=== PATIENT | male | born 1955 | race African-American/Black ===

== ENCOUNTER 2016-09-19 11:29 | Outpatient (CLI) | payer MEDICARE, MEDICAID ==
[2016-09-19 12:22] LABS: #Basophils 0.1 thou/uL (0.0-0.2); #Eosinphils 0.1 thou/uL (0.0-0.7); #Lymphocytes 1.6 thou/uL (1.20-3.40); #Monocytes 0.3 thou/uL (0.11-0.59); #Neutrophils 1.5 thou/uL (1.40-6.50); %Basophils 1.7 % (0.0-1.0); %Eosinophils 3.8 % (0.0-10.0); %Lymphocytes 43.9 % (21.0-51.0); %Monocytes 9.2 % (0.0-10.0); Hematocrit 43.7 % (42.0-52.0); Mean Platelet Volume 5.8 fL (7.4-10.4); Red Blood Cell (RBC) Count 4.59 mill/uL (4.70-6.10); White Blood Cell (WBC) Count 3.6 thou/uL (4.8-10.8)
[2016-09-19 12:30] LABS: ALT (SGPT) 22 U/L (0-55); AST (SGOT) 16 U/L (5-34); Alkaline Phosphatase 80 U/L (40-150); Bilirubin, Direct 0.2 mg/dL (0.1-0.3); Bilirubin, Total 0.4 mg/dL (0.2-1.2); Protein, Total 7.3 g/dL (6.0-8.3)
[2016-09-21 12:15] LABS: %CD4 (Helper/Inducer) 13.4 % (30.8-58.5); Absolute CD4 188 /uL (359-1519); Lymphocytes/Gated Cell Count 1.4 x10E3/uL (0.7-3.1)
== END 2016-09-19 11:30 | disposition home or self-care (01) ==
LOC: NAVSJIPCSP 11:29
PROVIDERS: ATTEND Internal Medicine Infectious Disease
DX: B20 Human immunodeficiency virus [HIV] disease (principal)
CPT/HCPCS: 36415; 80076; 85025; 85048; 86361; 86480; 86592; 86803; 87536

== ENCOUNTER 2016-10-30 08:24 | Outpatient (CLI) | payer MEDICARE, MEDICAID | END 2016-10-30 08:25 | disposition home or self-care (01) | LOC: NAVSJIPCSP 08:24 | PROVIDERS: ATTEND Internal Medicine | DX: E78.5 Hyperlipidemia, unspecified (principal); K21.9 Gastro-esophageal reflux disease without esophagitis | CPT/HCPCS: 36415; 80061 ==

== ENCOUNTER 2017-02-21 11:27 | Outpatient (CLI) | payer MEDICARE, MEDICAID ==
[2017-02-21 14:35] LABS: Cardiac Risk 3.6 (Less than 4.5)
== END 2017-02-21 11:28 | disposition home or self-care (01) ==
LOC: NAVSJIPCSP 11:27
PROVIDERS: ATTEND Internal Medicine
DX: E78.5 Hyperlipidemia, unspecified (principal)
CPT/HCPCS: 36415; 80061

== ENCOUNTER 2017-04-18 11:24 | Outpatient (CLI) | payer MEDICARE, MEDICAID ==
[2017-04-20 09:18] LABS: Absolute CD4 144 /uL (359-1519); Lymphocytes/Gated Cell Count 1.2 x10E3/uL (0.7-3.1); Total Lymphocyte 39 % (.); WBC Total Count 2.9 x10E3/uL (3.4-10.8)
== END 2017-04-18 11:25 | disposition home or self-care (01) ==
LOC: NAVSJIPCSP 11:24
PROVIDERS: ATTEND Internal Medicine Infectious Disease
DX: B20 Human immunodeficiency virus [HIV] disease (principal)
CPT/HCPCS: 85048; 86361; 87536

== ENCOUNTER 2018-10-03 09:52 | Emergency (ER) | payer MEDICARE, MEDICAID ==
--- NOTE | 2018-10-03 11:05 | RAD ---
CHEST AP AND LATERAL VIEWS: HISTORY: Hemoptysis and shortness of breath. FINDINGS: The heart size is borderline. No focal areas of consolidation, pneumothorax, kemal pulmonary edema, or pleural effusions are seen. No acute osseous abnormalities are identified. IMPRESSION: No acute process. POS: [facility]
[2018-10-03 11:06] LABS: PTT 33.2 SEC (22.9-36.1); Prothrombin Time 13.5 SEC (12.0-14.7)
[2018-10-03 11:09] LABS: #Basophils 0.1 thou/uL (0.0-0.2); #Eosinphils 0.1 thou/uL (0.0-0.7); #Lymphocytes 1.4 thou/uL (1.20-3.40); #Monocytes 0.6 thou/uL (0.11-0.59); #Neutrophils 3.6 thou/uL (1.40-6.50); %Basophils 1.3 % (0.0-1.0); %Eosinophils 1.6 % (0.0-10.0); %Lymphocytes 24.3 % (21.0-51.0); %Monocytes 9.9 % (0.0-10.0); %Neutrophils 62.9 % (42.0-75.0); Hemoglobin 12.6 g/dL (14.0-18.0); Mean Corpuscular HGB CONC 31.6 g/dL (32.0-36.0); Mean Corpuscular Hemoglobin 28.6 pg (27.0-31.0); Mean Corpuscular Volume 90.4 fL (78.0-98.0); Mean Platelet Volume 5.5 fL (7.4-10.4); Platelet Count 314 thou/uL (130-400); RBC Distribution Width 12.6 % (11.5-14.5); White Blood Cell (WBC) Count 5.7 thou/uL (4.8-10.8)
[2018-10-03 11:11] LABS: Anion Gap 14 mmol/L (10-20); BUN (Urea Nitrogen) 8 mg/dL (8.4-25.7); Calc. Creatinine Clearance 0 mL/min (70-130); Carbon Dioxide 27 mmol/L (23-31); Chloride 99 mmol/L (98-107); Estimated GFR-MDRD Greater than 90; Glucose 108 mg/dL (80-115); Potassium 4.1 mmol/L (3.5-5.1); Sodium 136 mmol/L (136-145)
== END 2018-10-03 11:51 | disposition home or self-care (01) ==
LOC: NAV ERS 09:52
DX: R04.2 Hemoptysis (principal); B20 Human immunodeficiency virus [HIV] disease; K21.9 Gastro-esophageal reflux disease without esophagitis; F17.210 Nicotine dependence, cigarettes, uncomplicated; Z79.899 Other long term (current) drug therapy
CPT/HCPCS: 71046; 80048; 85025; 85610; 85730

== ENCOUNTER 2018-10-15 08:48 | Outpatient (CLI) | payer MEDICARE, MEDICAID ==
[2018-10-15] MEDS ORDERED: Iopamidol 370 76% 100 ML VIAL ONE (09:00)
--- NOTE | 2018-10-15 12:37 | CT ---
CT CHEST WITH CONTRAST: HISTORY: Cough. Hemoptysis. Hoarseness. TECHNIQUE: A contrast enhanced CT chest is performed. IV contrast is given. FINDINGS: Images demonstrate numerous 4 to 8 mm lung parenchymal masses, [id number], compatible with extensive and numerous lung parenchymal metastatic lesions. No evidence of mediastinal, hilar, or a xillary lymphadenopathy is seen. There is a large left vocal cord mass, measuring approximately 4.1 x 3 cm, invading and deforming the left vocal cord, extending medially, compromising the airway. Dedicated soft tissue neck CT, as wel l as ENT consultation with direct visualization is recommended. 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 Correlate with dedicated CT soft tissue neck. In addition, ENT consultation also recommended. POS: [facility]
== END 2018-10-15 08:49 | disposition home or self-care (01) ==
LOC: NAV CT 08:48
PROVIDERS: ATTEND Internal Medicine
DX: J38.3 Other diseases of vocal cords (principal); R04.0 Epistaxis; R05 Cough
CPT/HCPCS: 71260; Q9967

== ENCOUNTER 2018-10-17 08:39 | Outpatient (CLI) | payer MEDICARE, MEDICAID ==
[2018-10-17] MEDS ORDERED: Iopamidol 370 76% 100 ML VIAL ONE (09:00)
--- NOTE | 2018-10-17 11:28 | CT ---
CT CONTRAST ENHANCED SOFT TISSUE NECK: HISTORY: Hoarseness 6 months. FINDINGS: Contrast-enhanced CT images of the soft tissue neck obtained. Images demonstrate a transvocal cord left-sided mass originating from the left vocal cord or left pir iform sinus extending superiorly upwards to into the left aryepiglottic folds into the pharyngeal muc osal space of the supraglottic region. The inferior extent extends well below the left vocal cord co mpressing the upper aspect of the left thyroid lobe. Superior inferior dimension measures 6.2 cm whi le axial dimension measures 3.6 x 4.1 cm. The mass erodes and deforms the left vocal cord extending anteriorly to the level of the anterior commissure. There appear to be areas of necrosis centrally w ith pockets of gas extending to the left cord mass. It extends posteriorly well medial to the left c ommon carotid artery and internal jugular vein. It compresses the proximal esophagus toward the righ t. Numerous left deep cervical necrotic lymph nodes seen. Left jugulodigastric lymph node with likely e xtracapsular spread is seen measuring 1.7 x 2.5 cm. Additional left level IV and level III lymph nod es also seen. These are also heterogeneous and partially necrotic compatible with metastatic disease involvement. IMPRESSION: 1. Large transglottic left neck mass with deep cervical metastatic disease involvement. 2. Incidentally noted central C3-4 disk rotropulsion is also present. There may be some central cor d compression at this level. POS: [facility]
== END 2018-10-17 08:40 | disposition home or self-care (01) ==
LOC: NAV CT 08:39
PROVIDERS: ATTEND Internal Medicine
DX: J38.3 Other diseases of vocal cords (principal); R22.1 Localized swelling, mass and lump, neck
CPT/HCPCS: 70491; Q9967

== ENCOUNTER 2018-12-25 06:28 | Emergency (ER) | payer MEDICARE, MEDICAID ==
[2018-12-25] MEDS ORDERED: Morphine 4 MG/ML VIAL ONE (07:44)
[2018-12-25] MEDS ORDERED: Ondansetron PF 4 MG/2 ML Vial ONE (07:44)
[2018-12-25 07:54] LABS: Hemoglobin 10.4 g/dL (14.0-18.0); Mean Corpuscular HGB CONC 30.7 g/dL (32.0-36.0); Mean Corpuscular Hemoglobin 25.7 pg (27.0-31.0); Mean Corpuscular Volume 83.7 fL (78.0-98.0); Mean Platelet Volume 6.5 fL (7.4-10.4); Platelet Count 220 thou/uL (130-400); RBC Distribution Width 14.9 % (11.5-14.5); Red Blood Cell (RBC) Count 4.03 mill/uL (4.70-6.10)
[2018-12-25 07:55] LABS: White Blood Cell (WBC) Count 0.2 thou/uL (4.8-10.8)
[2018-12-25 07:57] LABS: #Lymphocytes 0.2 thou/uL (1.20-3.40); #Neutrophils 0.4 thou/uL (1.40-6.50); %Basophils 1.3 % (0.0-1.0); %Eosinophils 1.3 % (0.0-10.0); %Monocytes 2.9 % (0.0-10.0); %Neutrophils 14.6 % (42.0-75.0)
[2018-12-25 07:58] LABS: ALT (SGPT) 37 U/L (8-55); AST (SGOT) 44 U/L (5-34); Albumin 3.2 g/dL (3.4-4.8); Alkaline Phosphatase 51 U/L (40-150); Anion Gap 16 mmol/L (10-20); BUN (Urea Nitrogen) 25 mg/dL (8.4-25.7); Bilirubin, Total 0.8 mg/dL (0.2-1.2); Calc. Creatinine Clearance 0 mL/min (70-130); Calcium 8.2 mg/dL (7.8-10.44); Carbon Dioxide 26 mmol/L (23-31); Chloride 97 mmol/L (98-107); Estimated GFR-MDRD Greater than 90; Globulin 3.4 g/dL (2.4-3.5); Glucose 124 mg/dL (80-115); Lipase 31 U/L (8-78); Protein, Total 6.6 g/dL (5.8-8.1); Sodium 134 mmol/L (136-145)
--- NOTE | 2018-12-25 08:30 | RAD ---
Abdomen 2 views INDICATION: History of abdominal pain COMPARISON: Chest radiograph dated 12/22/2018 FINDINGS: There is increased airspace opacity within the retrocardiac left lower lobe, which is new f rom a comparison dated 12/22/2018. Findings may reflect developing pneumonia or aspiration. Recommend correlation. Two-view chest radiograph may be helpful for improved characterization. Right subclavian chest wall port and tracheostomy tube are unchanged. There is suspicion for small left pleural effusion. The bowel gas pattern is nonspecific but without overt evidence of obstruction. IMPRESSION: Left lower lobe airspace opacity with suspicion for small left pleural effusion, is new f rom the comparison exam dated 12/22/2018. Recommend correlation for any symptoms and signs of left lower lobe pneumonia. Two-view chest radiograph may be helpful for further characterization. No acute abnormality evident within the abdomen.
[2018-12-25] MEDS ORDERED: Sodium Chloride For Inhalation 0.9% 3 ML NEB ONE (08:43)
[2018-12-25] MEDS ORDERED: Cefepime 2 GM VIAL ONE (08:55)
[2018-12-25] MEDS ORDERED: Sodium Chloride 0.9% 2,000 ML ONE (08:55)
[2018-12-25] MEDS ORDERED: Sodium Chloride 0.9% 100 ML ONE (08:55)
[2018-12-25] MEDS ORDERED: Sodium Chloride 0.9% 250 ML 250 ML ONE (08:55)
== END 2018-12-25 10:31 | disposition short-term general hospital (02) ==
LOC: NAV ERS 06:28
DX: A41.9 Sepsis, unspecified organism (principal); J18.9 Pneumonia, unspecified organism; K59.00 Constipation, unspecified; E86.0 Dehydration; D70.9 Neutropenia, unspecified; B20 Human immunodeficiency virus [HIV] disease; K21.9 Gastro-esophageal reflux disease without esophagitis; Z87.891 Personal history of nicotine dependence; Z79.899 Other long term (current) drug therapy
CPT/HCPCS: 36415; 74019; 80053; 82274; 83605; 83690; 85025; 87040; 87804; 93005; 96361; 96365; 96375; J0692; J2270; J2405; J3370; J3490; J7050; J7620